=== PATIENT | male | born 1995 | race Two or more races ===

== ENCOUNTER 2025-07-02 15:28 | Emergency (ER) | payer MEDICAID, SELFPAY ==
[2025-07-02 15:29] VITALS: BMI 43.3
[2025-07-02 16:46] VITALS: BP 152/88; PULSE 86; RESP 20; TEMP 36.8; O2SAT 96
--- NOTE | 2025-07-02 17:03 | XR_ITS ---
Examination: CT brain head without contrast. 2-D sagittal coronal reconstructions Date and time of exam: July 02, 2025 at 1747 hours INDICATIONS: Onset dizziness today CTDI: vol (mGy): 59.6 DLP: (mGycm): 1296 Technique: Multiple CT axial sections of the brain have been obtained, 5 mm slice thickness. Contrast has not been administered. 2-D sagittal, coronal reconstructions have been obtained Low dose protocols were performed. One or more of the following dose reduction techniques were used; automated exposure control, adjustment of the mA and/or KV according to patient size, use of iterative reconstruction technique. Findings: No significant ventricular enlargement. Intra-axial or extra-axial hemorrhage density is not seen. No mass effect or midline shift Basal cisterns are not remarkable. Fourth ventricle is midline. Cranial vault intact. Impression: Negative for acute hemorrhage, mass effect or midline shift Advise clinical correlation and follow-up accordingly
--- NOTE | 2025-07-02 17:03 | EKG_ITS ---
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
--- NOTE | 2025-07-02 17:04 | PD.EDRME ---
Rapid Medical Screening Exam E Arrival date/time: 07/02/25 15:28 This is a 29-year-old male that comes into the emergency room with complaints of dizziness, nausea and mild headache. Patient states symptoms started yesterday. Patient states that his dizziness is exacerbated by movement. Patient reports that he has had vertigo in the past but it is never been this bad. Patient reports no past medical history. Patient denies chest pain shortness of breath. I have greeted and performed a focused initial assessment of this patient. Initial appropriate labs ordered at this time. A comprehensive ED assessment and evaluation of the patient and analysis of all test and completion of medical decision making process will be conducted by additional ED provider. Chief Complaint: General Adult/Misc Complain Time Seen by Provider: 07/02/25 15:59 Vital signs: Vital Signs Temperature 98.2 F 07/02/25 16:46 Pulse Rate 86 07/02/25 16:46 Respiratory Rate 20 07/02/25 16:46 Blood Pressure 152/88 H 07/02/25 16:46 Pulse Oximetry (%) 96 07/02/25 16:46 Oxygen Delivery Method Room Air 07/02/25 16:46 Exam: Awake and alert, breathing even and unlabored, skin warm and dry. Clinical Impression: Dizziness
[2025-07-02 17:49] LABS: Basophils # (Auto) 0.0 Thou/mm3 (0.0-0.2); Basophils % (Auto) 0 % (0-2.5); Eosinophils # (Auto) 0.0 Thou/mm3 (0.0-0.5); Eosinophils % (Auto) 0 % (0-10); Hematocrit 47.7 % (41.0-53.0); Hemoglobin 16.6 g/dL (13.5-16.0); Immature Granulocytes Auto 0.06 Thou/mm3 (0.00-0.00); Lymphocytes # (Auto) 1.6 Thou/mm3 (1.0-4.8); Lymphocytes % (Auto) 12 % (10-50); Mean Corpuscular HGB Conc 34.8 g/dl (31.0-37.0); Mean Corpuscular Hemoglobin 30.0 pg (25.0-35.0); Mean Corpuscular Volume 86 fL (80-100); Monocytes # (Auto) 0.5 Thou/mm3 (0.0-0.8); Monocytes % (Auto) 4 % (0-12); Neutrophils # (Auto) 11.6 Thou/mm3 (1.8-7.7); Neutrophils % (Auto) 84 % (37-80); Nucleated Red Blood Cell # 0.00 Thou/mm3 (0.00-0.00); Nucleated Red Blood Cell % 0 /100 WBC (0); Platelet Count 330 Thou/mm3 (140-440); RDW Standard Deviation 38.3 fL (35.1-43.9); Red Blood Count 5.54 Miln/mm3 (4.50-5.90); White Blood Count 13.8 Thou/mm3 (3.8-10.6)
[2025-07-02 18:09] LABS: B-Type Natriuretic Peptide < 20 pg/mL (0-100)
[2025-07-02 18:11] LABS: Alanine Aminotransferase 60 U/L (10-49); Albumin, Serum 5.0 gm/dL (3.5-5.0); Albumin/Globulin Ratio 1.7 (1.2-2.2); Alkaline Phosphatase 64 U/L (46-116); Anion Gap 9 (7-16); Aspartate Amino Transferase 35 U/L (0-34); BUN/Creatinine Ratio 8 Ratio (12-20); Bilirubin,Total 0.6 mg/dL (0.3-1.2); Blood Urea Nitrogen 6 mg/dL (9-23); Calcium 9.1 mg/dL (8.3-10.6); Calcium (Corrected) 9.1 mg/dL (8.5-10.1); Carbon Dioxide 24.0 mMol/L (20.0-31.0); Chloride 105 mMol/L (98-107); Creatinine (Component) 0.8 mg/dL (0.6-1.3); Estimated Creatinine Clearance 182.0 mL/min (>60); Globulin 3.0 gm/dL (2.3-3.5); Glucose 106 mg/dL (74-106); Osmolality,Calculated 273 (275-295); Potassium 4.1 mMol/L (3.4-5.1); Sodium 138 mMol/L (136-145); Total Protein 8.0 gm/dL (5.7-8.2); Troponin I < 0.002 ng/mL (0.0-0.045); eGFR > 60 See Note
[2025-07-02] MEDS: MECLIZINE HCL 25 MG TABLET 50 MG PO (19:43)
[2025-07-02] MEDS: ONDANSETRON ODT 4 MG TABRAP PO (19:43)
--- NOTE | 2025-07-02 20:06 | PD.EDADULT ---
ED General RME/HPI General Chief complaint: General Adult/Misc Complain Stated complaint: DIZZY, [place], VOMITING Time Seen by Provider: 07/02/25 15:59 Arrival date/time: 07/02/25 15:28 29-year-old male patient with no past medical history, came in for evaluation regarding sudden onset of dizziness and vertigo nausea and vomiting. Patient woke up this morning severity of symptoms moderate. Patient denies any fever denies any headache denies any slurring speech patient is ambulatory denies any trauma to the head. Patient had a history of similar episode in the past that went away on its own. RME / HPI RME / HPI narrative: 07/02/25 15:28 This is a 29-year-old male that comes into the emergency room with complaints of dizziness, nausea and mild headache. Patient states symptoms started yesterday. Patient states that his dizziness is exacerbated by movement. Patient reports that he has had vertigo in the past but it is never been this bad. Patient reports no past medical history. Patient denies chest pain shortness of breath. I have greeted and performed a focused initial assessment of this patient. Initial appropriate labs ordered at this time. A comprehensive ED assessment and evaluation of the patient and analysis of all test and completion of medical decision making process will be conducted by additional ED provider. Exam: Awake and alert, breathing even and unlabored, skin warm and dry. Impression: Dizziness Related Data Previous Rx's ?Medication ?Instructions ?Recorded meclizine 50 mg tablet 50 mg PO BID PRN vertigo #30 tabs 07/02/25 ondansetron HCl 4 mg tablet 4 mg PO Q8H PRN nausea and 07/02/25 vomiting 5 days #30 tabs Allergies Allergy/AdvReac Type Severity Reaction Status Date / Time No Known Allergies Allergy Verified 07/02/25 15:31 Review of Systems Review of Systems Narrative Review of Systems: Review of system reviewed and within normal limits except mentioned in HPI ED Exam Narrative Physical exam: VITAL SIGNS: Reviewed. GENERAL APPEARANCE: Alert and interactive, follows commands, no acute distress, HEAD AND FACE: Non-traumatic. ENT: PERRL, pink conjunctivitis, eyelid no trauma, Mucous membrane moist. NECK: Supple, nontender, no nuchal rigidity. CHEST: No tenderness, no crepitus, no paradoxical movement, no retractions. LUNGS: Clear, well ventilated, symmetric, no rales, no wheezing, no ronchi, no stridor, good breath sounds bilaterally. HEART: Regular rate, regular rhythm, no murmur, no gallops. ABDOMEN: Soft, positive bowel sounds, nondistended, no guarding, nontender, no rebound, no masses, RECTAL: Deferred. GENITAL: Deferred. NEUROLOGICAL: Gross motor function intact sensory function intact, Appropriate for age. MUSCULOSKELETAL: low back nontender, full range of motion. EXTREMITIES: Nontender, full range of motion. SKIN: Color pink, dry, no rash, no lacerations, no abrasions, no contusions. LYMPHATICS: Deferred. Course Quality Measures none Orders Category Date Time Status EKG (ED ONLY) *Do not use* NOW Care 07/02/25 17:[address] head/brain wo con Stat Exams 07/02/25 17:03 Completed EKG (ED Only) Stat Exams 07/02/25 17:03 Draft BNP [B-Type Natriuretic Peptide] Stat Lab 07/02/25 17:25 Completed CBC Stat Lab 07/02/25 17:25 Completed Comprehensive Metabolic Panel Stat Lab 07/02/25 17:25 Completed Troponin I Stat Lab 07/02/25 17:25 Completed Meclizine HCl [Antivert] Med 07/02/25 17:03 Discontinued 50 mg PO X1 ONE Ondansetron Odt [Zofran Odt] Med 07/02/25 17:03 Discontinued 4 mg PO X1 ONE Vital Signs Vital signs: Vital Signs Temperature 98.2 F 07/02/25 16:46 Pulse Rate 86 07/02/25 16:46 Respiratory Rate 20 07/02/25 16:46 Blood Pressure 152/88 H 07/02/25 16:46 Pulse Oximetry (%) 96 07/02/25 16:46 Oxygen Delivery Method Room Air 07/02/25 16:46 Discharge Plan Plan Patient Disposition: HOME (Self Care) Discharge Disposition comment: stable Prescriptions/Referrals Prescriptions/Med Rec: New meclizine 50 mg tablet 50 mg PO BID PRN (Reason: vertigo) Qty: 30 0RF ondansetron HCl 4 mg tablet 4 mg PO Q8H PRN (Reason: nausea and vomiting) 5 Days Qty: 30 0RF Referrals: No Primary/Family,Physician [Primary Care Provider] - In 1 week Problem List Clinical Impression: Vertigo Patient/Caregiver Discharge Instructions Discharge Activity: activity as tolerated Education Materials: Vertigo Staying Safe Additional Instructions: Thank you for the opportunity for serving you today. You are stable for discharged . You are advised to: Follow-up with your PCP in 1 to 2 days Return to ED for worsening of symptoms Increase oral fluids Take medication as prescribed Print Language: Kyrgyz Stand Alone Forms: Adelina Award Info., Patient Portal Info Letter DANISH/KEREN Supervising Physician CASS Supervising Physician: MD Wilfrid MDM Narrative MDM hospital course (for use when minimal MDM required): 29-year-old male patient with no past medical history, came in for evaluation regarding sudden onset of dizziness and vertigo nausea and vomiting. Patient woke up this morning severity of symptoms moderate. Patient denies any fever denies any headache denies any slurring speech patient is ambulatory denies any trauma to the head. Patient had a history of similar episode in the past that went away on its own. CT scan of the head came back unremarkable. CBC showed a slight leukocytosis of 13.8 the rest of the labs unremarkable. Results discussed with the patient. Patient was given meclizine and Zofran and was noted to have a significant proving of dizziness. Patient is stable for discharge home. Patient is ambulatory. Imaging Imaging Interpretation(s): EKG showed normal sinus rhythm, ventricular rate of 82 bpm, no ST segment elevation or depression noted. Medication Administration(s) Medication Administration History Discontinued Medications Meclizine HCl (Meclizine Hcl 25 Mg Tablet) 50 mg PO X1 ONE Stop: 07/02/25 17:04 Last Admin: 07/02/25 19:43 Dose: 50 mg Documented By: EFRA Ondansetron HCl (Ondansetron Odt 4 Mg Tabrap) 4 mg PO X1 ONE; Protocol Stop: 07/02/25 17:04 Last Admin: 07/02/25 19:43 Dose: 4 mg Documented By: EFRA
== END 2025-07-02 20:16 | disposition home or self-care (01) ==
PROVIDERS: Nurse Practitioner Family; Emergency Provider Emergency Medicine
DX: R42 Dizziness and giddiness (principal); R94.31 Abnormal electrocardiogram [ECG] [EKG]; R11.2 Nausea with vomiting, unspecified
CPT/HCPCS: 36415; 70450; 80053; 83880; 84484; 85025; 93005; 99283; Q0162; A9270